=== PATIENT | male | born 1960 | race Caucasian/White ===

== ENCOUNTER 2022-04-12 10:59 | Emergency (ER) | payer OTHER, SELFPAY ==
[2022-04-12 11:04] VITALS: BP 141/91; PULSE 97; RESP 20; TEMP 37.1; O2SAT 100
--- NOTE | 2022-04-12 11:10 | ED.URI ---
HPI - URI/Sore Throat General Chief Complaint: Upper Respiratory Infection Stated Complaint: sinus infection Time Seen by Provider: 04/12/22 11:10 Source: patient and RN notes reviewed History of Present Illness HPI Narrative: Patient is a 61-year-old male who presents to urgent care with complaints of sinus congestion, sneezing, drainage and cough for the last week. Patient has been taking ibuprofen. Otherwise not used anything for his upper respiratory symptoms. Denies any known fevers, nausea, vomiting or ill exposures. No other acute complaints. No acute distress noted. Patient aware of the plan of care. Some parts of this dictation were generated by voice recognition software and may contain typographical and/or grammatical inaccuracies. Related Data Allergies Allergy/AdvReac Type Severity Reaction Status Date / Time No Known Drug Allergies Allergy Unknown Verified 05/05/17 14:33 Review of Systems Review of Systems: CONSTITUTIONAL: Denies fever, chills, or sweats. EYES: Denies visual changes, redness, or discharge. ENT: Reports sneezing, rhinorrhea, postnasal drainage and congestion CARDIOVASCULAR: Denies chest pain, palpitations, or edema. RESPIRATORY: reports a mild cough without dyspnea GASTROINTESTINAL: Denies abdominal pain, nausea, vomiting, or diarrhea. GENITOURINARY: Denies dysuria or hematuria. SKIN: Denies rash or itching. MUSCULOSKELETAL: Denies back pain, joint pain, or myalgia. NEUROLOGIC: Denies headache, numbness, or weakness. All other systems reviewed are negative, except as documented in HPI. [facility] Surgical History Surgical History History of shoulder surgery bilateral Family History Family History (Updated 11/27/21 @ 13:20 by Korina Devries MA) Sibling Acute myocardial infarction Asthma Diabetes mellitus Heart disease Father Diabetes mellitus Mother Hypertension Social History Social History (Updated 11/27/21 @ 13:21 by Korina Devries MA) Smoking status: Never smoker Second hand tobacco smoke exposure: No Alcohol intake: current Alcohol use details: Rarely Substance use: never Substance use type: does not use Gender identity (if verbalized by the patient): Male Sexual Orientation (if Verbalized by the Patient): Straight or Heterosexual Spiritual care concerns: No Agree to blood products: Yes Comments At the time of my signature, I reviewed and agree with the nursing past medical, surgical, social, and family history. There is no relevant family history pertinent to the patient complaint. Exam Narrative: GENERAL: This is a well-nourished, well-developed patient, in no apparent distress. HEAD: normocephalic, atraumatic. EYES: PERRL. Sclera clear/white. Vision is grossly intact. EARS: External ears normal, auditory canals clear and without drainage, TMs normal without perforation. Hearing grossly intact. NOSE: External nose normal with no obvious nasal discharge; mild bilateral erythema nares with clear yellow rhinorrhea THROAT: Mucous membranes moist, posterior pharynx clear. moderate postnasal drainage NECK: Neck supple, non-tender without lymphadenopathy CARDIOVASCULAR: Regular rate and rhythm without murmurs, gallops, or rubs. RESPIRATORY: Clear to auscultation. Breath sounds equal bilaterally. No wheezes, rales, or rhonchi. SKIN: warm, intact with no suspicious lesions or rash, good texture and turgor. NEURO: awake, alert, and oriented to person, place and time. There were no obvious focal neurologic abnormalities. EXTREMITIES: No clubbing, cyanosis, or edema. Course Course Level of Care: Express Care Visit Vital Signs Vital signs: Vital Signs Temperature 98.8 F 04/12/22 11:04 Pulse Rate 97 04/12/22 11:04 Respiratory Rate 20 04/12/22 11:04 Blood Pressure 141/91 H 04/12/22 11:04 Pulse Oximetry 100 04/12/22 11:04 Oxygen Delivery Room Air 04/12/22 11:04
== END 2022-04-12 11:31 | disposition home or self-care (01) ==
PROVIDERS: Emergency Provider Nurse Practitioner Family; PCP Family Medicine Adolescent Medicine
DX: J32.9 Chronic sinusitis, unspecified (principal)
CPT/HCPCS: 99213; G0463

== ENCOUNTER 2024-02-09 02:22 | Day surgery (SDC) | payer BC, SELFPAY ==
[2024-02-09 09:50] VITALS: BP 153/86; PULSE 75; RESP 18; TEMP 36.3; O2SAT 97; BMI 30.4
[2024-02-09] MEDS: LACTATED RINGERS 1,000 ML 30 ML IV CONT (10:13)
[2024-02-09 10:27] LABS: Glucose Point of Care 174 mg/dl (65-105)
--- NOTE | 2024-02-09 10:55 | PM.IMHP ---
H&P: HPI History of Present Illness Date/Time: 02/09/24 10:55 Chief Complaint: screening for colorectal cancer Narrative: this is a 63-year-old man who presents for colonoscopy. He has never had a colonoscopy before. He denies any hematochezia melena. He denies family history of colon cancer. Review of Systems Review of Systems: All systems reviewed & are unremarkable except as noted in HPI and below Constitutional: Constitutional: Denies chills, Denies fever(s), Denies headache(s) and Denies weight loss Eyes: Eyes: Denies change in vision ENT: Denies dizziness, Denies headache(s), Denies neck mass and Denies throat swelling Cardiovascular: Cardiovascular: Denies chest pain, Denies lightheadedness and Denies dyspnea Respiratory: Respiratory: Denies cough, Denies dyspnea and Denies wheezing Gastrointestinal: Gastrointestinal: Denies abdominal pain, Denies change in bowel habits, Denies nausea and Denies vomiting Genitourinary: Genitourinary: Denies hematuria and Denies dysuria Musculoskeletal: Musculoskeletal: Reports as per HPI Integumentary/Breasts: Skin/Breast: Reports as per HPI Neurologic: Denies dizziness and Denies headache(s) Allergic/Immunologic: Allergic/Immunologic: Denies throat swelling and Denies wheezing PMFSH Surgical History Surgical History History of shoulder surgery bilateral Family History Family History (Updated 11/27/21 @ 13:20 by Korina Devries MA) Sibling Acute myocardial infarction Asthma Diabetes mellitus Heart disease Father Diabetes mellitus Mother Hypertension Social History Social History (Updated 10/09/22 @ 14:26 by Korina Devries MA) Smoking status: Never smoker Second hand tobacco smoke exposure: No Alcohol intake: current Alcohol use details: rarely Substance use: never Substance use type: does not use Lack of Transportation: No Lack of Food: Never True Current Housing: I Have Housing Concerned About Future Housing: No Difficulty Paying Gas/Electric Bills: No Difficulty Paying for Meds: No Currently Unemployed: No Education: High School Diploma/GED Living arrangements: with family Occupation/Education: occupation Gender identity (if verbalized by the patient): Male Sexual Orientation (if Verbalized by the Patient): Straight or Heterosexual Spiritual care concerns: No Agree to blood products: Yes Meds Home Medications and Allergies Home Medications Medication Instructions Recorded Confirmed Type pioglitazone 30 mg tablet 30 mg PO DAILY #90 tabs 09/04/23 02/09/24 Rx semaglutide 1 mg/dose (4 mg/3 mL) 1 mg (0.75 mL) subcut WEEKLY #3 mL 10/27/23 02/09/24 Rx subcutaneous pen injector metformin 500 mg tablet,extended 2,000 mg PO DAILY #360 tabs 10/29/23 02/09/24 Rx release 24 hr glimepiride 2 mg tablet 2 mg PO BID #180 tabs 12/02/23 02/09/24 Rx Allergies Allergy/AdvReac Type Severity Reaction Status Date / Time No Known Drug Allergies Allergy Unknown Unknown Verified 02/09/24 09:55 Vital Signs Vital Signs - 24 hr 02/09/24 09:50 Temperature 97.4 F L Pulse Rate 75 Respiratory Rate 18 Blood Pressure 153/86 H Pulse Oximetry 97 Oxygen Delivery Room Air Exam Const: General: no acute distress and alert Orientation/consciousness: patient oriented x3 HENMT: Head: normocephalic and atraumatic Ears: hearing grossly normal bilaterally Face/Nose/Sinus: Normal nares present Mouth: Yes Normal oral and palatal mucosa present Eyes: Periorbital: periorbital findings normal Sclera: sclerae normal EOM: EOMs intact bilaterally Neck: Neck: normal visual inspection, no lymphadenopathy and trachea midline Chest: Chest palpation & inspection: normal inspection of the chest Resp: Effort & Inspection: normal respiratory effort Auscultation: clear to auscultation bilaterally Cardio: Jugular venous distension: no JVD Rate: regul
--- NOTE | 2024-02-09 11:02 | WPDANESEPPF ---
Anes - Initial Pre Proc Eval Procedure: Operation Date: 02/09/24 11:00 Proposed Procedures p Screening Colonoscopy - Miguel Buchanan DO Date/Time: 02/09/24 11:02 Surgeon: Miguel Buchanan DO Pre Op Diagnosis: Screening for malignant neoplasm of colon Patient Data Age: 63 Gender: M Height: 1.7 m Weight: 88.3 kg Last Vital Signs Temp 97.4 F L 02/09/24 09:50 Pulse 75 02/09/24 09:50 Resp 18 02/09/24 09:50 BP 153/86 H 02/09/24 09:50 Pulse Ox 97 02/09/24 09:50 O2 Del Method Room Air 02/09/24 09:50 Allergies Allergy/AdvReac Type Severity Reaction Status Date / Time No Known Drug Allergies Allergy Unknown Unknown Verified 02/09/24 09:55 Home Medications Medication Instructions Recorded Confirmed Type pioglitazone 30 mg tablet 30 mg PO DAILY #90 tabs 09/04/23 02/09/24 Rx semaglutide 1 mg/dose (4 mg/3 mL) 1 mg (0.75 mL) subcut WEEKLY #3 mL 10/27/23 02/09/24 Rx subcutaneous pen injector metformin 500 mg tablet,extended 2,000 mg PO DAILY #360 tabs 10/29/23 02/09/24 Rx release 24 hr glimepiride 2 mg tablet 2 mg PO BID #180 tabs 12/02/23 02/09/24 Rx Laboratory Tests 02/09/24 10:25 POC Capillary Glucose 174 H mg/dl (65-105) Patient hx anesthesia problems: none Family hx anesthesia problems: none Results Review: All pre-operative results and documents have been reviewed as part of the pre-operative evaluation. [facility] Surgical History Surgical History History of shoulder surgery bilateral Family History Family History Sibling Acute myocardial infarction Asthma Diabetes mellitus Heart disease Father Diabetes mellitus Mother Hypertension Social History Social History Smoking status: Never smoker Second hand tobacco smoke exposure: No Alcohol intake: current Alcohol use details: rarely Substance use: never Substance use type: does not use Lack of Transportation: No Lack of Food: Never True Current Housing: I Have Housing Concerned About Future Housing: No Difficulty Paying Gas/Electric Bills: No Difficulty Paying for Meds: No Currently Unemployed: No Education: High School Diploma/GED Living arrangements: with family Occupation/Education: occupation Gender identity (if verbalized by the patient): Male Sexual Orientation (if Verbalized by the Patient): Straight or Heterosexual Spiritual care concerns: No Agree to blood products: Yes Anes - Eval Final PreProcedure Day of Procedure 02/09/24 11:02 Patient weight: obese Heart: regular rate and rhythm Lungs: clear to auscultation Airway: Mallampati scale class II Neurological: alert and oriented Last oral intake: >/= 8 hours ASA classification: II Emergent: no Anesthetic plan: proceed Anesthesia type and monitoring: general GIVS and standard monitoring Results Review: All pre-operative results and documents have been reviewed as part of the pre-operative evaluation. DM, fsbs 174. Active w raising young children, not sedentary, no cp or sob. Informed Consent: The patient's anesthetic plan and its attendant risks and benefits were discussed with the patient/family/POA. Questions were solicited and answers provided to the satisfaction of the patient/family/POA.
[2024-02-09 11:22] VITALS: BP 117/76; PULSE 84; RESP 38; O2SAT 99
[2024-02-09 11:32] VITALS: BP 123/90; PULSE 78; RESP 22; O2SAT 99
[2024-02-09 11:42] VITALS: BP 145/82; PULSE 68; RESP 16; O2SAT 98
== END 2024-02-09 11:46 | disposition home or self-care (01) ==
PROVIDERS: PCP Family Medicine Adolescent Medicine; Visit Provider Surgery
PROC: 0DJD8ZZ Inspection of Lower Intestinal Tract, Via Natural or Artificial Opening Endoscopic (ICD-10-PCS; CPT 45378; principal; 2024-02-09 11:00)
DX: Z12.11 Encounter for screening for malignant neoplasm of colon (principal); D12.8 Benign neoplasm of rectum; E66.9 Obesity, unspecified; Z68.30 Body mass index [BMI] 30.0-30.9, adult; Z79.85 Long-term (current) use of injectable non-insulin antidiabetic drugs; Z79.84 Long term (current) use of oral hypoglycemic drugs; Z98.890 Other specified postprocedural states; Z82.49 Family history of ischemic heart disease and other diseases of the circulatory system
CPT/HCPCS: 45385; 82948; 88305; J2003; J2704; J7120